=== PATIENT | female | born 1960 | race Caucasian/White ===

== ENCOUNTER → 2021-06-24 08:12 | Outpatient (CLI) | payer OTHER, SELFPAY ==
--- NOTE | 2021-06-24 12:35 | NEURO_ITS ---
NCS and/or EMG Patient Report Ordering Doctor: En Baxter DATE OF SERVICE: 06/24/21 Nora presents for electrodiagnostic testing of the right upper limb she reports numbness and tingling in the right hand for the past several months. Electrodiagnostic findings: Right median motor nerve demonstrates prolonged la tency with normal amplitude and reduced conduction velocity. Normal right ulnar motor response. Prolonged right median F wave. Absent right median sensory response at the wrist and palm. Normal ulnar and radial sensory responses. On needle EMG, all muscles tested in the right upper limb as well as the right cervical paraspinals showed no evidence of denervation with normal motor unit action potentials. Electrodiagnostic assessment: This is an abnormal study in the right upper limb. 1. Electrodiagnostic findings demonstrate right-sided median mononeuropathy. This is consistent with an advanced right carpal tunnel syndrome.
== END ==
PROVIDERS: PCP Family Medicine; Referring Provider Orthopaedic Surgery; Visit Provider Orthopaedic Surgery
DX: G56.01 Carpal tunnel syndrome, right upper limb (principal)
CPT/HCPCS: 95886; 95910